=== PATIENT | male | born 1945 | race Caucasian/White ===

== ENCOUNTER 2019-11-24 14:59 | Emergency (ER) | payer MEDICARE, MEDICAID ==
[~2019-11-24] VITALS: Ht 172.7 cm; Wt 84.8 kg
[2019-11-24 15:13] VITALS: BP 111/69
== END 2019-11-24 20:38 | disposition left against medical advice (07) ==
LOC: ER 15:03
DX: R06.02 Shortness of breath (principal); Z53.21 Procedure and treatment not carried out due to patient leaving prior to being seen by health care provider
CPT/HCPCS: 93005